=== PATIENT | male | born 1960 | race Caucasian/White ===

== ENCOUNTER → 2016-09-13 | Outpatient (CLI) | payer OTHER | END | disposition home or self-care (01) | LOC: CFH 12:37 | PROVIDERS: ATTEND Internal Medicine Cardiovascular Disease | DX: I08.1 Rheumatic disorders of both mitral and tricuspid valves (principal); I48.92 Unspecified atrial flutter | CPT/HCPCS: 93306 ==

== ENCOUNTER 2016-09-22 08:13 | Observation (INO) | payer OTHER ==
[2016-09-21 10:29] VITALS: BP 109/76
[2016-09-21 11:09] LABS: ASPARTATE AMINO TRANSFERASE 10 U/L (15-37); BLOOD UREA NITROGEN 25 mg/dL (7-18)
[~2016-09-22] VITALS: Ht 185.4 cm; Wt 101.0 kg
[~2016-09-22 08:13] MED LIST: APIX5TAB PO; FLEC150T PO; LOSA50TA6 PO; METF10002 PO; METO50TA82 PO; PRAV40TA2 PO
[2016-09-22] MEDS ORDERED: SODIUM CHLORIDE 0.9% 1,000 ML IV SCH ×2 (08:32→09:00)
[2016-09-22] MEDS ORDERED: ISOPROTERENOL 0.2MG/ML, 5ML ONE (11:36)
[2016-09-22] MEDS ORDERED: HEPARIN 1,000 UNITS/ML, 10ML ONE (11:36)
[2016-09-22] MEDS ORDERED: PROTAMINE SULFATE 10 MG/ML, 5ML ONE ×2 (11:36→11:52)
[2016-09-22] MEDS ORDERED: FENTANYL PF 250 MCG/5ML ONE ×2 (11:48→11:51)
[2016-09-22] MEDS ORDERED: MIDAZOLAM 1 MG/ML, 5ML ONE ×2 (11:48→11:51)
[2016-09-22] MEDS ORDERED: ROCURONIUM 10 MG/ML ONE (11:52)
[2016-09-22] MEDS ORDERED: PROPOFOL 10 MG/ML, 20ML ONE (11:52)
[2016-09-22] MEDS ORDERED: ONDANSETRON 2MG/ML, 2ML ONE (11:52)
[2016-09-22] MEDS ORDERED: DEXAMETHASONE 4 MG/ML, 1ML ONE (11:52)
[2016-09-22] MEDS ORDERED: SUCCINYLCHOLINE 20 MG/ML, 10ML ONE (11:52)
[2016-09-22] MEDS ORDERED: PHENYLEPHRINE 10 MG/ML ONE (11:52)
[2016-09-22] MEDS ORDERED: LIDOCAINE 2%, 20ML ONE (11:53)
[2016-09-22] MEDS ORDERED: OXYcodone/APAP 10/325MG TABLET PO PRN (16:30)
[2016-09-22] MEDS ORDERED: ACETAMINOPHEN 325 MG TABLET PO PRN ×2 (16:30→17:00)
[2016-09-22] MEDS ORDERED: ZOLPIDEM 5MG TABLET PO PRN (16:30)
[2016-09-22] MEDS ORDERED: ACETAMINOPHEN 325 MG/10.15 ML UDC ONE (16:44)
[2016-09-22] MEDS ORDERED: OXYcodone 5 MG/5 ML ORAL.SOL UDC ONE (16:44)
[2016-09-22] MEDS ORDERED: FENTANYL PF 100 MCG/2ML IV PRN (17:00)
[2016-09-22] MEDS ORDERED: ALBUTEROL SULFATE 2.5 MG/3 ML NPPB PRN (17:00)
[2016-09-22] MEDS ORDERED: MIDAZOLAM 1 MG/ML, 2ML IV PRN (17:00)
[2016-09-22] MEDS ORDERED: HYDROmorphone 1 MG/ML, 1ML IV PRN (17:00)
[2016-09-22] MEDS ORDERED: MEPERIDINE/PF 25MG/0.5ML IVPush PRN (17:00)
[2016-09-22] MEDS ORDERED: OXYcodone 5 MG/5 ML ORAL.SOL UDC PO PRN (17:00)
[2016-09-22] MEDS ORDERED: LABETALOL 5MG/ML, 20ML IV PRN (17:00)
[2016-09-22] MEDS ORDERED: hydrALAzine 20 MG/ML, 1ML IV PRN (17:00)
[2016-09-22] MEDS ORDERED: PROMETHAZINE 25 MG/ML, 1ML IV PRN (17:00)
[2016-09-22] MEDS ORDERED: ONDANSETRON 2MG/ML, 2ML IVPush PRN (17:00)
[2016-09-22] MEDS ORDERED: FLECAINIDE 50MG TABLET PO SCH (18:00)
[2016-09-22 18:33] VITALS: BP 96/62
[2016-09-22 19:50] VITALS: BP 97/65
[2016-09-22] MEDS: FLECAINIDE 50MG TABLET PO SCH (20:54)
[2016-09-22] MEDS: metFORMIN 500 MG TABLET PO SCH (20:55)
[2016-09-22] MEDS: APIXABAN 5 MG TABLET PO SCH (20:56)
[2016-09-22] MEDS ORDERED: PRAVASTATIN 40 MG TABLET PO SCH (21:00)
[2016-09-22] MEDS: METOPROLOL TARTRATE 50 MG TABLET PO SCH (21:19)
[2016-09-23 02:45] VITALS: BP 107/71
[2016-09-23 06:40] VITALS: BP 112/74
[2016-09-23] MEDS: APIXABAN 5 MG TABLET PO SCH (08:52)
[2016-09-23] MEDS: metFORMIN 500 MG TABLET PO SCH (08:52)
[2016-09-23] MEDS: METOPROLOL TARTRATE 50 MG TABLET PO SCH ×2 (08:52→08:53)
[2016-09-23] MEDS: FLECAINIDE 50MG TABLET PO SCH (08:52)
[2016-09-23] MEDS ORDERED: LOSARTAN 50MG TABLET PO SCH (09:00)
[2016-09-23] MEDS ORDERED: METO25TA35 PO (09:14)
== END 2016-09-23 11:35 | disposition home or self-care (01) ==
LOC: CACL 08:13 → ORIP 16:02 → 5SO 17:44
PROVIDERS: ADMIT Internal Medicine Cardiovascular Disease; ATTEND Internal Medicine Cardiovascular Disease
DX: I48.91 Unspecified atrial fibrillation (principal); I48.92 Unspecified atrial flutter; I10 Essential (primary) hypertension; E78.5 Hyperlipidemia, unspecified; E11.9 Type 2 diabetes mellitus without complications
CPT/HCPCS: 36415; 71020; 80053; 85025; 85347; 85610; 85730; 93005; 93308; 93312; 93321; 93325; 93613; 93655; 93656; 93662; C1730; C1731; C1732; C1759; C1766; C1893; C1894; G0378; J0330; J1100; J1644; J2250; J2370; J2405; J2704; J2720; J3010; J3490; 93621